=== PATIENT | female | born 1990 | race African-American/Black ===

== ENCOUNTER 2018-08-02 21:22 | Emergency (ER) | payer OTHER ==
[~2018-08-02] VITALS: Ht 160 cm; Wt 93.0 kg
[2018-08-02] MEDS ORDERED: NOHOMEMEDICATIONS (21:55)
[2018-08-03 00:35] LABS: BASOPHILS 0.7 % (0.0-2.0)
[2018-08-03 00:44] LABS: ABSOLUTE NEUTROPHILS 3.9 thou/uL (1.4-8.2); EOSINOPHILS 1.5 % (0.0-3.0); HEMATOCRIT 38.8 % (37.0-47.0); HEMOGLOBIN 13.5 gm/dL (12.0-15.0); LYMPHOCYTES 26.6 % (24.0-44.0); MCH 35.2 pg (26.0-34.0); MCHC 34.8 g/dL (28.0-37.0); MONOCYTES 4.6 % (1.0-8.0); PLATELET COUNT 177 thou/uL (150-400); POLYS 66.6 % (36.0-66.0); RBC 3.84 mil/uL (4.20-5.00); RDW 12.5 % (10.5-14.5); WBC 5.9 thou/uL (4.0-11.0)
[2018-08-03 00:46] LABS: ANION GAP 10 mmol/L (7-16); BUN 12 mg/dL (7-18); CALCIUM 8.7 mg/dL (8.5-10.1); CHLORIDE 105 mmol/L (98-107); CO2 26 mmol/L (21-32); CREATININE 0.8 mg/dL (0.6-1.0); GLUCOSE 102 mg/dL (74-106); POTASSIUM 3.8 mmol/L (3.5-5.1); SODIUM 141 mmol/L (136-145)
[2018-08-03 00:55] LABS: TROPONIN-I <0.06 ng/mL (<0.06)
[2018-08-03] MEDS ORDERED: PEPCID20 MG PO (01:44)
[2018-08-03 02:30] VITALS: BP 151/82
--- NOTE | 2018-08-03 09:10 | EKG ---
[place] [address] [facility] [place] [address] ELECTROCARDIOGRAM REPORT Name: MILAN FU Room #: DEP MARYAM Joseph#: [id number] ������������������ Admission: 08/02/18 ������������������ Attend Phys: Discharge: 08/03/18 ������������������ Date of : 89 Report #: [id number] ����������������������������������������������������������������� [id number] THIS REPORT FOR: //name// [facility] ED Test Date: 2018-08-02 Test Time: 21:55:35 Pat Name: MILAN FU Department: Room: Gender: F [employer]: MARISOL : 1990 Requested By: Amberly Puentes Order Number: [id number] MD: Robbie Huff Measurements Intervals [place] Rate: 69 P: 64 MI: 155 QRS: 59 QRSD: 85 T: 56 QT: 401 QTc: 430 Interpretive Statements Sinus arrhythmia Normal tracing No previous ECG available for comparison Electronically Signed On 08-03-2018 9:10:02 CDT by Robbie Huff [email or web address] ��������������������������������������������� <ELECTRONICALLY SIGNED> ���������������������������������������� By: Robbie Huff MD, [facility] ��������������������������������������������� 08/03/18 0910 [id number] Robbie Huff MD, FACC /EPI
== END 2018-08-03 03:02 | disposition home or self-care (01) ==
LOC: ER 21:22
PROVIDERS: Emergency Medicine
DX: K29.70 Gastritis, unspecified, without bleeding (principal); F17.210 Nicotine dependence, cigarettes, uncomplicated; Z88.6 Allergy status to analgesic agent